=== PATIENT | female | born 1945 | race Caucasian/White ===

== ENCOUNTER 2022-05-06 13:33 | Outpatient (CLI) | payer OTHER | END 2022-05-06 13:34 | disposition home or self-care (01) | LOC: CSHMRI 13:33 | PROVIDERS: ATTEND Urology | DX: N28.1 Cyst of kidney, acquired (principal) | CPT/HCPCS: 74183; 82565 ==

== ENCOUNTER 2022-09-19 15:41 | Outpatient (CLI) | payer OTHER | END 2022-09-19 15:42 | disposition home or self-care (01) | LOC: CSHRAD 15:41 | PROVIDERS: ATTEND Physician Assistant | DX: M54.2 Cervicalgia (principal); M47.812 Spondylosis without myelopathy or radiculopathy, cervical region | CPT/HCPCS: 72040 ==